=== PATIENT | male | born 1940 | race Caucasian/White ===

== ENCOUNTER 2019-11-18 08:38 | Outpatient (CLI) | payer MEDICARE, OTHER, SELFPAY ==
--- NOTE | ~2019-11-18 | PE_ITS ---
EXAMINATION: PET skull to mid thigh DATE: 11/18/2019 11:46 INDICATION: Small cell lung cancer TECHNIQUE: Blood glucose level was 109 mg/dL. 10.25 mCi of 18-fluorodeoxyglucose (18-FDG) was adminis tered i.v. Low dose computed tomography (CT) images were acquired from the base of the brain to the p roximal thighs for attenuation correction and anatomic localization. Positron emission tomography (PE T) images were acquired in the same distribution beginning 64 minutes after injection. COMPARISON: None FINDINGS: Head/neck: FDG uptake oral cavity and vocal cords without suspicious CT correlate is likely physiolog ic. There are multiple bilateral pathologically enlarged supraclavicular lymph nodes with abnormal FD G uptake. The largest right measures 2.8 x 1.3 cm the largest on the left measures 2.5 x 1.7 cm. Chest: There is a right perihilar mass extending into the right upper lobe lobe with associated abnor mal FDG uptake. The greatest axial dimension of the mass is 7.1 x 5.4 cm with maximum SUV uptake of 1 2.2. There is matted right paratracheal lymphadenopathy with abnormal FDG uptake SUV max 11.5. There are also pathologically enlarged subcarinal and aorticopulmonary window lymph nodes. Right axillary l ymph nodes are normal in size but demonstrate abnormal FDG uptake. There is no pleural effusion or pn eumothorax. The heart size is normal. There is calcified coronary artery atherosclerosis. Abdomen/pelvis/proximal thighs: There are multiple FDG avid masses scattered throughout the liver, so me of which are confluent. The largest measures approximately 7.5 x 6.4 cm in the left hepatic lobe a nd demonstrates an SUV max of 11.2. The gallbladder is surgically absent. Spleen, pancreas, and adren al glands are normal. There is mild atrophy of the kidneys. There is calcified atherosclerosis of the aorta and many of the other arteries. No pathologically enlarged abdominal or pelvic lymph nodes are identified. There is no free intraperitoneal gas or evidence of bowel obstruction. Physiologic FDG a ctivity is present in the bowel and urinary tract. Musculoskeletal: There are foci of FDG uptake in the right aspect of the T12 vertebral body and near the lesser trochanter of the right femur without definite suspicious CT correlate identified. IMPRESSION: 1. Right perihilar mass with extension into the right upper lobe, consistent with history of small ce ll lung cancer. 2. Supraclavicular, right axillary, and mediastinal lymph nodes with abnormal FDG uptake as well as m ultiple liver masses, consistent with metastatic disease. 3. Indeterminate areas of mild FDG uptake in the T12 vertebral body and right proximal femur. Reviewed, dictated and finalized at location B. IMPRESSION: 1. Right perihilar mass with extension into the right upper lobe, consistent wi th history of small cell lung cancer. 2. Supraclavicular, right axillary, and mediastinal lymph nodes with abnormal F DG uptake as well as multiple liver masses, consistent with metastatic disease. 3. Indeterminate areas of mild FDG uptake in the T12 vertebral body and right p roximal femur.
[2019-11-18 09:19] LABS: Glucose Point of Care 109 (65-105)
== END 2019-11-18 08:39 | disposition home or self-care (01) ==
PROVIDERS: Visit Provider Internal Medicine
DX: R91.1 Solitary pulmonary nodule (principal); C80.1 Malignant (primary) neoplasm, unspecified; R59.0 Localized enlarged lymph nodes
CPT/HCPCS: 78815; A9552